=== PATIENT | female | born 1965 | race Caucasian/White ===

== ENCOUNTER 2020-06-01 10:57 | Observation (INO) | payer OTHER, SELFPAY ==
[2020-06-01] VITALS (9 sets, daily range): BP systolic 119–150; BP diastolic 76–87; PULSE 65–94; RESP 15–20; TEMP 36.6–37.5; O2SAT 98–100; BMI 20.9
--- NOTE | ~2020-06-01 | MR_ITS ---
EXAMINATION: MR brain/brain stem wo/w con DATE: 06/02/2020 07:53 INDICATION: Diplopia. Seizure. TECHNIQUE: Magnetic resonance imaging (MRI) of the brain and brainstem was performed without and with 11 mL MultiHance intravenous contrast. Sequences included sagittal and axial T1-weighted FSE, axial diffusion-weighted FS EPI, axial T2*-weighted GRE, axial T2-weighted FLAIR Propeller, and axial T2-we ighted Propeller. Postcontrast sequences included axial and coronal T1-weighted FSE. Apparent diffusi on coefficient (ADC) maps were created. COMPARISON: Head CT 06/01/2020 FINDINGS: There are scattered areas of nonspecific increased T2-weighted signal intensity in the cere bral white matter, which is within normal limits for the patient's age. There is no intracranial hemo rrhage, acute infarction, or abnormal intracranial mass lesion. The ventricles are normal in size. Th e paranasal sinuses are clear. The orbits are normal. The mastoid air cells are normal. IMPRESSION: 1. Normal aging brain. Reviewed, dictated and finalized at location A. IMPRESSION: 1. Normal aging brain.
--- NOTE | ~2020-06-01 | US_ITS ---
EXAMINATION: US thyroid DATE: 06/02/2020 08:20 INDICATION: Enlarged and tender left thyroid lobe. TECHNIQUE: Multiple ultrasound images of the thyroid were obtained. COMPARISON: None. FINDINGS: The right thyroid lobe measures 5.0 x 1.4 x 1.2 cm. The left thyroid lobe measures 3.5 x 0.9 x 1.1 c m. There is normal echotexture and echogenicity throughout the thyroid gland. No discrete nodules id entified. Normal vascular flow is present. IMPRESSION: 1. Normal thyroid. Reviewed, dictated and finalized at location A. IMPRESSION: 1. Normal thyroid.
--- NOTE | ~2020-06-01 | CT_ITS ---
EXAMINATION: CTA brain carotid DATE: 06/01/2020 12:08 INDICATION: Dizziness. TECHNIQUE: Computed tomographic angiography (CTA) of the head was performed without and with 100 mL O mnipaque-350 intravenous contrast. CTA of the neck was performed with intravenous contrast. Automated exposure control and iterative reconstruction technique were employed. The dose-length product was 1 618.96 mGy-cm. Maximum intensity projection and volume rendered 3D-reconstructions were created by nora montesinos technologist on a separate workstation. COMPARISON: None. FINDINGS: HEAD CTA: There is no intracranial hemorrhage, acute infarction, or abnormal intracranial mass lesion . The ventricles are normal in size. The paranasal sinuses are clear. The mastoid air cells are nicanor l. The orbits are normal. Right vertebral artery is dominant. There is no significant stenosis of bas ilar artery. Left P1 posterior cerebral artery segment is small or absent, a normal variant. There is no significant stenosis of the intracranial internal carotid arteries or anterior or middle cerebral arteries. Anterior communicating artery is normal. There is no aneurysm. NECK CTA: There is mild scarring at the lung apices. There are no pathologically enlarged lymph nodes . There is no significant stenosis of the vertebral arteries. There is no visible plaque in the proxi mal internal carotid arteries. There is 0% stenosis of the proximal right internal carotid artery re lative to normal distal artery lumen diameter (NASCET criteria). There is 0% stenosis of the proximal left internal carotid artery relative to normal distal artery lumen diameter. There is moderate cerv ical spondylosis. IMPRESSION: 1. Normal brain. No aneurysm or significant intracranial arterial stenosis. 2. 0% stenosis of the proximal internal carotid arteries relative to normal distal artery lumen diame ters (NASCET criteria). Reviewed, dictated and finalized at location A. IMPRESSION: 1. Normal brain. No aneurysm or significant intracranial arterial stenosis. 2. 0% stenosis of the proximal internal carotid arteries relative to normal dis oma artery lumen diameters (NASCET criteria).
--- NOTE | 2020-06-01 11:12 | ECG_ITS ---
Measurements Intervals [place] Rate: 82 P: 19 NM: 128 QRS: 36 QRSD: 102 T: 37 QT: 366 QTc: 429 Interpretive Statements SINUS RHYTHM BASELINE ARTIFACT- III NORMAL ECG Electronically Signed On 06-01-2020 14:08:26 CDT by Lorenzo Philippe D.O.
[2020-06-01 11:28] LABS: Basophils Absolute Auto 0.1 K/mm3 (0.0-0.1); Basophils Percent Auto 0.8 % (0.2-1.2); Eosinophils Percent Auto 0.5 % (0-4.4); Hematocrit 37.5 % (37.0-47.0); Hemoglobin 12.5 g/dL (12.0-15.0); Immature Granulocyte Absolute 0.01 K/mm3 (0.00-0.031); Immature Granulocyte Percent A 0.2 % (0-0.5); Lymphocytes Absolute Auto 2.22 K/mm3 (0.9-3.2); Lymphocytes Percent Auto 35.6 % (18.3-44.2); Mean Corpuscular HGB Conc 33.3 g/dl (32-36); Mean Corpuscular Hemoglobin 33.1 pg (26-34); Mean Corpuscular Volume 99.2 fl (80-100); Mean Platelet Volume 8.9 fl (7.4-10.4); Monocytes Absolute Auto 0.6 K/mm3 (0.1-0.6); Monocytes Percent Auto 9.5 % (2.6-8.5); Neutrophils Absolute Auto 3.3 K/mm3 (1.3-6.7); Neutrophils Percent Auto 53.4 % (45.5-73.1); Platelet Count Result 292 k/mm3 (150-375); Red Blood Count 3.78 M/mm3 (4.2-5.4); Red Cell Distribution Width 12.5 % (11.5-14.5); White Blood Count 6.2 K/mm3 (4.5-10.0)
--- NOTE | 2020-06-01 11:29 | ED.GENADULT ---
HPI - General Adult General Chief complaint: Dizziness Stated complaint: dizzy Time Seen by Provider: 06/01/20 11:17 Source: patient History of Present Illness HPI narrative: Patient is a 55 y/o female complaining dizziness and double vision for 2 weeks. She states that her dizziness is severe and she has trouble walking. She describes her dizziness as light-headedness without room spinning sensation. There is no alleviating or exacerbating factor. She has no focal weakness, numbness or speech difficulty. She has history of seizure. She states that she had a seizure yesterday. Related Data Allergies Allergy/AdvReac Type Severity Reaction Status Date / Time Penicillins Allergy Unknown Verified 06/01/20 11:12 Review of Systems Constitutional: Constitutional: Denies chills, Denies fever(s), Denies headache(s) and Denies weakness Eyes: Eyes: Reports blurry vision and Reports diplopia ENT: Denies headache(s) and Denies neck pain Cardiovascular: Cardiovascular: Denies chest pain and Denies dyspnea Respiratory: Respiratory: Denies cough and Denies dyspnea Gastrointestinal: Gastrointestinal: Denies abdominal pain, Denies diarrhea, Denies nausea and Denies vomiting Genitourinary: Genitourinary: Denies hematuria and Denies dysuria Musculoskeletal: Musculoskeletal: Denies back pain and Denies neck pain Neurologic: Reports dizziness, Denies headache(s) and Denies weakness [facility] Social History Social History Gender identity (if verbalized by the patient): Female Exam Const: General: no acute distress and well developed Orientation/consciousness: oriented to person, oriented to place, oriented to time and patient oriented x3 HENMT: Head: normocephalic Ears: external ears normal General nose exam: Normal external nose present Eyes: General: appearance normal, both eyes and all related structures Visual Carbajal: abnormal by confrontation right visual field cut Conjunctivae: conjunctivae normal Neck: Neck: normal visual inspection and full ROM Chest: Chest palpation & inspection: normal inspection of the chest and no tenderness Resp: Effort & Inspection: normal respiratory effort Auscultation: clear to auscultation bilaterally Cardio: Rate: regular rate Rhythm: regular rhythm GI: GI Palp: No abdominal tenderness and Yes Soft to palpation Skin: General skin exam: normal color and turgor normal Neuro: General: oriented to person, oriented to place, oriented to time and patient oriented x3 Cognition (Neuro): normal cognition Speech: normal speech Motor exam (neuro): 5/5 motor strength present throughout Sensory Exam: normal sensation Coordination: [id number] test normal Extrem: General: normal to inspection, full ROM and no pedal edema Psych: Appearance: grossly normal Mental Status: mental status grossly normal Affect: normal affect Course Consultations Consultation #1: Discussed with KIKE Graham, who agrees to admit to Dr. Black. She also recommends neurology consult. Date: 06/01/20 Time: 14:28 Vital Signs Vital signs: Vital Signs Temperature 36.7 C 06/01/20 11:02 Pulse Rate 94 06/01/20 11:02 Respiratory Rate 18 06/01/20 11:02 Blood Pressure 150/85 H 06/01/20 11:02 Pulse Oximetry 98 06/01/20 11:02 Temperature 36.7 C 06/01/20 11:02 Pulse Rate 79 06/01/20 15:30 Respiratory Rate 20 06/01/20 15:30 Blood Pressure 134/87 06/01/20 15:30 Pulse Oximetry 100 06/01/20 15:30 Medical Decision Making MDM Narrative Medical decision making narrative: Stroke is considered. However, patient is not a candidate for tPA because LKW is approximately 2 weeks ago. Vital Signs Vital Signs: Vital Signs Temperature 36.7 C 06/01/20 11:02 Pulse Rate 94 06/01/20 11:02 Respiratory Rate 18 06/01/20 11:02 Blood Pressure 150/85 H 06/01/20 11:02 Pulse Oximetry 98 06/01/20 11:02 Temperature 36.7 C 06/01/20 11:02 Pu
[2020-06-01 11:40] LABS: Anion Gap 7 mmol/L (8-16); Blood Urea Nitrogen 13 mg/dL (7-17); Calcium 9.2 mg/dL (8.4-10.2); Carbon Dioxide 28 mmol/L (22-30); Chloride 102 mmol/L (98-107); Estimated CRCL calculation 72 ml/min; Estimated Glomerular Filt Rate > 60; Glucose 104 mg/dL (65-105); Potassium 4.1 mmol/L (3.4-5.0); Sodium 137 mmol/L (137-145)
--- NOTE | 2020-06-01 17:01 | ADMGEN ---
This patient, Cary Dow, was admitted to 2 Medical Room 259-. Patient/family oriented to hospital policies and general routines including ID bracelet, bed and alarms, visiting hours, pain management, procedures, bathroom and other care routines, personal items, smoking policy, room service/diet, and visiting hours. Valuables list has been completed. Information on how to activate the Rapid Response Team has been discussed. Patient/Family are encouraged to report perceived risks to care and to ask questions if they do not understand what they are told or what they should do.
--- NOTE | 2020-06-01 17:40 | PM.IMHP ---
H&P: HPI History of Present Illness Date/Time: 06/01/20 17:40. Chief complaint: Dizziness, double vision. Narrative: Cary Dow is a 55-year-old female with epilepsy presented to the emergency department earlier today via private vehicle for evaluation of dizziness and double vision. She reports a decrease in visual acuity starting at the end of March and was seen by an hospitality intern recently and was given a new prescription, however she has not received her new glasses as of yet. She also notes intermittent, binocular diplopia and was told that there was no reason for such on her exam. Additionally she has had intermittent, throbbing frontal headaches, lightheadedness that she further describes as ?wooziness? and balance issues. Her balance has not been good ?for quite some time? but she cannot give me specifics as to when or why her balance is off. Additionally she reports having 3 seizures in the last 1 week, and was told to come to the emergency department today for further evaluation. The patient tells me that she has had seizures since the age of 47 but was not diagnosed with epilepsy until November of 2019. 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 which apparently is the cause of her seizures. She has been taking lamotrigine since that time, and states compliance with that medication. It sounds as though she is chronically sleep deprived, and takes alprazolam 2 mg several nights a week to help with sleep, though it does not seem to be very beneficial. She denies taking access alprazolam than prescribed, and has not stopped that drug abruptly. She used to drink a glass or 2 of wine with dinner each night but has not drank alcohol for many months. In addition to the intermittent diplopia, she also has intermittent dysphagia and slurred speech. She denies any acute change in vision today, auditory changes, tinnitus, vertigo, focal weakness, paresthesias, shortness of breath, and eyelid drooping. No history of seizures, thyroid disease, or myasthenia gravis. She also denies chest pain, palpitations, and racing heart. Review of Systems Review of Systems: Narrative: Twelve systems were reviewed with pertinent positives and negatives as per HPI. No fever, chills, or sweats. No recent cold or flu symptoms. She denies neck ache. No rash. No chest pain or shortness of breath. She has an occasional cough, which seems to correlate during those times of dysphagia. She denies concerns for aspiration. Denies intermittent weakness of the extremities, head, and neck. No history of venous thromboembolism. Weight has remained stable. No hair loss. Except as documented, all other systems were reviewed and are negative. [facility] Past Medical History Medical History (Updated 06/01/20 @ 22:28 by Sisi Zazueta PA-C) Anxiety Epilepsy History of ectopic Surgical History Surgical History (Updated 06/01/20 @ 22:23 by Sisi Zazueta PA-C) History of appendectomy History of tonsillectomy Family History Family History Father Hypertension Social History Social History (Updated 06/01/20 @ 22:24 by Sisi Zazueta PA-C) Social History: The patient recently moved to the area from [place], [place]. 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 She is a lifelong nonsmoker and denies illicit substance use. She used to drink 1 to 2 glass a wine with dinner, but has not drank in many months. She designates her daughter, Jessica Romero, as her surrogate decision maker and she wishes to be a full code. Spiritual care concerns: No Meds Home Medications and Allergies Home Medications Medication Instructions Recorded Confirmed Type alprazolam 2 mg PO BID PRN 06/01/20 06/01/20 History lamotrigine 100 mg PO BID 06/01/20 06/01/20 History Allergies Allergy/AdvReac Type Severity Reaction Status Date /
[2020-06-01] MEDS: ACETAMINOPHEN 325 MG TABLET 650 MG PO (22:19)
[2020-06-01] MEDS: lamoTRIgine 100 MG TABLET PO (22:20)
[2020-06-01] MEDS: ALPRAZolam (*CRX) 0.5 MG TABLET 2 MG PO (22:20)
[2020-06-02] VITALS (7 sets, daily range): BP systolic 125–141; BP diastolic 70–84; PULSE 54–86; RESP 15–16; TEMP 36.8–36.9; O2SAT 99
--- NOTE | 2020-06-02 02:52 | PC.NURSE ---
06/01/202144 after 3 attempts over 2.5 hours, [facility] concerns over [facility]s and pain meds for headache, return call obtained and orders recieved.
[2020-06-02 05:34] LABS: Alanine Aminotransferase 22 U/L (4-35); Albumin Level 4.1 g/dL (3.5-5.1); Alkaline Phosphatase 66 U/L (38-126); Aspartate Amino Transferase 30 U/L (14-36); Bilirubin,Total 0.5 mg/dL (0.2-1.3); Cholesterol 202 mg/dL (0-200); HDL Direct 68 mg/dL; Triglycerides 104 mg/dL (<150)
[2020-06-02 05:45] LABS: LDL Cholesterol Direct 105 mg/dL
[2020-06-02] MEDS: lamoTRIgine 100 MG TABLET PO (08:29)
[2020-06-02] MEDS: ASPIRIN 81 MG ENTERIC TABLET PO (08:29)
--- NOTE | 2020-06-02 15:30 | PM.DS ---
DS: Admitting Diagnosis Admitting Diagnosis Admitting Diagnosis: 1. Neurological symptoms. 2. Epilepsy. 3. Anxiety. 4. Painful thyroid. DS: Discharge Diagnosis Discharge Diagnosis (1) Neurological symptoms: Code(s): R29.90 - Unspecified symptoms and signs involving the nervous system Status: Acute (2) Epilepsy: Code(s): G40.909 - Epilepsy, unspecified, not intractable, without status epilepticus Status: Acute (3) Anxiety: Code(s): F41.9 - Anxiety disorder, unspecified Status: Acute (4) Painful thyroid: Code(s): E07.89 - Other specified disorders of thyroid Status: Acute DS: Summary Hospital Course Reason for hospitalization: The patient presented to the emergency department via private vehicle on 06/01/2020, initially with complaints of dizziness and diplopia since March. With further questioning, she admits she was sent to the emergency department by her neurologist for evaluation of 3 seizures in the past 1 week, despite being compliant with antiseizure medications. She also mentioned intermittent symptoms that have been present for quite some time to intermittent dysphasia, blurry vision, and occasional balance issues. Hospital Course: The patient was admitted to the hospital overnight for observation. Blood pressure on arrival to the emergency department was 150/85 but was well within normal limits throughout the rest of the stay. CBC and CMP were unremarkable. Total cholesterol was mildly elevated at 202 with her other lipids being acceptable. She was monitored on telemetry given concerns for possible TIA/CVA. Head and neck CT on arrival to the emergency department showed a normal brain without aneurysm or significant intracranial arterial stenosis and 0% stenosis of the proximal internal carotid arteries bilaterally. Brain MRI showed a normal aging brain. EKG demonstrated a sinus rhythm without acute changes and telemetry was unremarkable. Her antiseizure medication was continued and there was no seizure activity during hospitalization. Her blurry vision and occasional diplopia may very well be related to worsening visual acuity, and in fact she received a new lens prescription after seeing her call taker within the past week or so however her new glasses have yet to arrive. She had no troubles with dysphasia and was encouraged to follow-up with her primary care provider for possible GI referral. During exam she complained of an enlarged thyroid and was tender to palpation over the left lobe. Subsequent thyroid ultrasound was unremarkable and her TSH was within normal limits at 1.260. She was seen in consultation by Dr. Irwin, who recommends no change in her seizure medications and feels that her symptoms are likely related to partial seizures and/or less likely drug effect. No further evaluation was pursued as she had recently seen her neurologist, Dr. Hernandez, with relatively recent EEG as well. The patient felt comfortable being discharged home today with follow-up and she was instructed to call her primary care provider and neurologist tomorrow morning to set up appointments. She was up and ambulating without issue on the day of discharge and tolerating diet. She was instructed not to drive until cleared by her neurologist. Status at Discharge Cognitive/behavioral status at discharge: Normal mood and affect with intact judgment and insight. Functional status at discharge: independent ambulation Overall status at discharge: patient is back to baseline Time Spent with Patient Time attestation: Total time spent providing and/or coordinating discharge services: 45 minutes. DS: Data Data Completed and Pending Labs on day of discharge: Labs from last 24 hours 06/02/20 06/02/20 05:11 05:11 Total Bilirubin 0.5 Direct Bilirubin 0.0 AST 30 ALT 22 Alkaline Phosphatase 66 Total Protein 6.0 L Albumin 4.1 Triglycerides 104 Cholesterol 202 H LDL Cholesterol Direct
--- NOTE | 2020-06-02 16:05 | WPDNEURCNPN ---
Assessment and Plan Assessment and plan (1) Anxiety: Code(s): F41.9 - Anxiety disorder, unspecified Status: Acute (2) Epilepsy: Code(s): G40.909 - Epilepsy, unspecified, not intractable, without status epilepticus Status: Acute (3) Dizziness: Code(s): R42 - Dizziness and giddiness Status: Acute (4) Seizure: Code(s): R56.9 - Unspecified convulsions Status: Acute (5) Diplopia: Code(s): H53.2 - Diplopia Status: Acute Additional Plan patient lives in [place] however she is going to go home to her mother and have instructed her which she was planning to do any way to be in touch with Dr. Hernandez her epileptologist at [facility] to see what he wishes to do am not making any changes in her medications option risk in the benefits of discussed with her and she is willing to go home and I told her not to be driving at all to the situation clarify itself Consult date: 06/02/20 Time Seen: 15:45 HPI: Cary Dow is a 55 year old female who is right-handed and was admitted because of multiple symptoms including blurred vision double vision fogginess of her mind and also having had what sounds like a partial seizure couple of days prior to coming to the hospital she has a history of seizures since age 47 without any history of meningitis or encephalitis however did have some concussions in her earlier years more recently she has been followed by Dr. Hernandez at [facility] and is on lamotrigine 200 milligram twice a day she did see him 2 weeks ago with similar complaints and he suspected a drug effect versus partial seizures the evaluation at [facility] included the brain MRI and EEGs and I told her to call Dr. Hernandez tomorrow which is Wednesday and and discussed the situation with him our MRI of the brain is negative and at the time of this examination the patient denies any headache nausea vomiting chest pain shortness of breath fever chills sore throat Review of Systems Review of Systems: All systems reviewed & are unremarkable except as noted in HPI and below PMFSH Past Medical History Medical History Anxiety Epilepsy History of ectopic Surgical History Surgical History History of appendectomy History of tonsillectomy Family History Family History Father Hypertension Social History Social History Social History: The patient recently moved to the area from [place], [place]. 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 She is a lifelong nonsmoker and denies illicit substance use. She used to drink 1 to 2 glass a wine with dinner, but has not drank in many months. She designates her daughter, Jessica Romero, as her surrogate decision maker and she wishes to be a full code. Spiritual care concerns: No Meds Home Medications and Allergies Home Medications Medication Instructions Recorded Confirmed Type alprazolam 2 mg PO BID PRN 06/01/20 06/01/20 History lamotrigine 100 mg PO BID 06/01/20 06/01/20 History Allergies Allergy/AdvReac Type Severity Reaction Status Date / Time Penicillins Allergy Unknown Verified 06/01/20 11:12 Vital Signs Vital Signs - 24 hr 06/01/20 17:00 06/01/20 20:00 06/01/20 21:50 Temperature 37.5 C 36.6 C Pulse Rate 79 69 65 Respiratory Rate 15 16 Blood Pressure 129/76 130/85 Pulse Oximetry 100 99 06/02/20 00:00 06/02/20 04:00 06/02/20 06:00 Temperature 36.9 C Pulse Rate 61 58 L 54 L Respiratory Rate 16 Blood Pressure 125/70 Pulse Oximetry 99 06/02/20 08:00 06/02/20 12:00 06/02/20 14:00 Temperature 36.8 C Pulse Rate 59 L 73 69 Respiratory Rate 15 Blood Pressure 141/84 H Pulse Oximetry 99 Exam Const
== END 2020-06-02 17:23 | disposition home or self-care (01) ==
LOC: ANHED 14:42 → ANH2MED 15:17
PROVIDERS: Physician Assistant; Admitting Provider Family Medicine; Emergency Provider Emergency Medicine; PCP Family Medicine; Visit Provider Internal Medicine
DX: R42 Dizziness and giddiness (principal); H53.2 Diplopia; G40.909 Epilepsy, unspecified, not intractable, without status epilepticus; E07.89 Other specified disorders of thyroid; E04.9 Nontoxic goiter, unspecified
CPT/HCPCS: 36415; 70496; 70498; 70553; 76536; 80048; 80061; 80076; 84443; 85025; 93005; 99285; A9270; A9577; G0378; Q9967